=== PATIENT | male | born 1930 | race Caucasian/White ===

== ENCOUNTER 2018-04-10 18:49 | Observation (INO) | payer SELFPAY ==
--- NOTE | 2018-04-10 19:26 | ED ---
Dizziness - HPI Summary HPI Summary: 88 year old M [facility] accompanied by daughter with a chief complaint of dizziness at [address]30 [address] [employer] parking that has since resolved. Symptoms aggravated by nothing. Symptoms alleviated by nothing. Patient states that he felt wobbly and that he was not able to walk. He reports bilateral leg weakness that has since resolved. He did not fall. Patient denies being dizzy at the moment. Daughter also reports that patient was anxious and had insmonia two days ago. Patient has hx anxiety since triple by-pass surgery in 2016. - History Of Current Complaint Chief Complaint: EDDizziness Stated Complaint: DIZZINESS/COULDNT MAKE LEGS WORK Time Seen by Provider: 04/10/18 19:06 Hx Obtained From: Patient, Family/Methods Specialist Engineer - daughter Onset/Duration: Resolved, Suddenly - 1730 today Aggravating Factor(s): Nothing Alleviating Factor(s): Nothing Associated Signs And Symptoms: Positive: Other: - bilateral leg weakness that has since resolved - Allergies/Home Medications Allergies/Adverse Reactions: Allergies Allergy/AdvReac Type Severity Reaction Status Date / Time No Known Allergies Allergy Verified 04/10/18 18:58 Home Medications: Home Medications Atorvastatin* [Lipitor*] 40 mg PO DAILY 04/10/18 [History Confirmed 04/10/18] Ezetimibe TAB* [Zetia TAB*] 10 mg PO DAILY 04/10/18 [History Confirmed 04/10/18] Melatonin/Pyridoxine [Melatonin/Vitamin B-6 Ext 5-1 mg] 1 tab PO BEDTIME [History Confirmed 04/10/18] traZODone TAB* [Desyrel TAB*] 50 mg PO BEDTIME 04/10/18 [History Confirmed 04/10] PMH/Surg Hx/FS Hx/Imm Hx Previously Healthy: No Endocrine/Hematology History: Denies: Hx Diabetes Cardiovascular History: Reports: Hx Hypercholesterolemia Denies: Hx Myocardial Infarction Sensory History: Reports: Hx Hearing Aid EENT History: Reports: Hx Hearing Aid Neurological History: Denies: Hx CVA, Hx Transient Ischemic Attacks (TIA) Psychiatric History: Reports: Hx Anxiety - Surgical History Surgery Procedure, Year, and Place: triple by pass surgery 2016 in [place] Infectious Disease History: No Infectious Disease History: Denies: Traveled Outside the [place] in Last 30 Days - Family History Known Family History: Positive: Cardiac Disease - brothers [place] - Social History Alcohol Use: None Hx Substance Use: No Substance Use Type: Reports: None Hx Tobacco Use: No Smoking Status (MU): Never Smoked Tobacco Review of Systems Neurological: Other - dizziness that has since resolved Positive: Weakness - bilateral leg weakness that has since resolved Positive: Anxious, Other - insomnia All Other Systems Reviewed And Are Negative: Yes Physical Exam - Summary Physical Exam Summary: GENERAL: Patient is a well-developed and nourished M who is lying comfortable in the stretcher. Patient is not in any acute respiratory distress. HEAD AND FACE: Normocephalic EYES: PERRLA, EOMI x 2. EARS: Hearing grossly intact. MOUTH: Oropharynx within normal limits. NECK: Supple, trachea is midline, no adenopathy, no JVD, no carotid bruit. CHEST: Symmetric, no tenderness at palpation LUNGS: Clear to auscultation bilaterally. No wheezing or crackles. CVS: Regular rate and rhythm, S1 and S2 present, no murmurs or gallops appreciated. ABDOMEN: Soft, non-tender. Bowel sounds are normal. No abdominal abnormal pulsations. EXTREMITIES: Full ROM in all major joints, no edema, no cyanosis or clubbing. NEURO: Alert and oriented x 3. No acute neurological deficits. Speech is normal and follows commands. Cranial nerves II-XII grossly intact, no dysmetria finger to nose, nml heel to aguilar SKIN: Dry and warm GCS: 15 Triage Information Reviewed: Yes Vital Signs On Initial Exam: Initial Vitals Temp Pulse Resp BP Pulse Ox 97.3 F 68 16 161/84 96 04/10/18 18:56 04/10/18 18:56 04/10/18 18:56 04/10/18 18:56 04/10/18 18:56 Vital Signs Reviewed: Yes Diagnostics - Vital Signs Vital Signs Temp Pulse Resp BP Pulse Ox 04/10/18 18:56 97.3 F 68 16 161/84 96 - Laboratory Result Diagrams: 04/10/18 19:39 04/11/18 05:23 Lab Statement: Any lab studies that have been ordered have been reviewed, and results considered in the medical decision making process. - Radiology CXR Radiology Interpretation Completed By: ED Physician - No acute process. Pending official report. - CT Brain CT Interpretation Completed By: Radiologist - No acute intracranial abnormality. ED provider has reviewed this report. - EKG 1937 Cardiac Rate: NL - 66 BPM EKG Rhythm: Sinus Rhythm EKG Interpretation: Prolonged MA. Left axis deviation. QT is mildly prolonged National Institutes Of Health - NIH Scale Level of Consciousness: Alert/Keenly Responsive Ask Patient the Month and His/Her Age: Both Correct Ask Pt to Open/Close Eyes and Bench Press Operator/Release Non-Paretic Hand: Both Correctly Best Gaze (Only Horizontal Eye Movement): Normal Visual Field Testing: No Visual Loss Facial Paresis-Pt to Smile & Close Eyes or Grimace Symmetry: Normal/Symmetrical Motor Function - Right Arm: No Drift-Holds 10 Seconds Motor Function - Left Arm: No Drift-Holds 10 Seconds Motor Function - Right Leg: No Drift-Holds 10 Seconds Motor Function - Left Leg: No Drift-Holds 10 Seconds Limb Ataxia-Must be out of Proportion to Weakness Present: Absent Sensory (Use Pinprick to Test Arms/Legs/Trunk/Face): Normal Best Language (Describe Picture, Name Items): No Aphasia Dysarthria (Read Several Words): Normal Extinction and Inattention: No Abnormality Total Score: 0 Re-Evaluation - Re-Evaluation First Eval Re-Evaluation Time: 21:23 Comment: Patient feels fine. He wants to go home, but told him that we will consult with hospitalist first. Dizzy Course/Dx - Course Course Of Treatment: 88 year old M presenting to [facility] accompanied by daughter with a chief complaint of dizziness at [address] in [employer] parking that has since resolved. CT negative for etiology. Bloodwork unremarkable. Symptoms were concerning for TIA so I recommended admission for full stroke workup. Case discussed with hospitalist, Dr. Minaya. I discussed results with patient. The patient will be admitted. The patient agrees with this plan. - Diagnoses Provider Diagnoses: TIA (transient ischemic attack) - Provider Notifications Discussed Care Of Patient With: Latricia Minaya Time Discussed With Above Provider: 21:32 Instructed by Provider To: Other - Dr. Minaya, hospitalist, agrees to come talk to patient in the ED. Discharge - Sign-Out/Discharge Documenting (check all that apply): Patient Departure - Admit - Discharge Plan Condition: Stable Disposition: ADMITTED TO [facility] - Billing Disposition and Condition Condition: STABLE Disposition: Admitted to [facility] - Attestation Statements Document Initiated by Scribe: Yes Documenting Scribe: Bibi Lynch Provider For Whom Scribe is Documenting (Include Credential): Dano Maharaj MD Scribe Attestation: I, Bibi Lynch, scribed for Dano Maharaj MD on 04/11/18 at 2153. Scribe Documentation Reviewed: Yes Provider Attestation: The documentation as recorded by the scribe, Bibi Lynch accurately reflects the service I personally performed and the decisions made by me, Dano Maharaj MD
[2018-04-10] MEDS ORDERED: NS 0.9% 1000 ML* 1,000 ML IV ONE (19:35)
[2018-04-10 19:49] LABS: ABS Basophils 0.1 10^3/ul (0-0.2); ABS Eosinophils 0.3 10^3/ul (0-0.6); ABS Lymphocytes 1.2 10^3/ul (1.0-4.8); ABS Monocytes 0.6 10^3/ul (0-0.8); ABS Neutrophils 3.3 10^3/ul (1.5-7.7); ABS Nucleated RBC 0 10^3/ul; Hematocrit 41 % (42-52); Hemoglobin 13.9 g/dl (14.0-18.0); Mean Corpuscular HGB Conc 34 g/dl (31-36); Mean Corpuscular Hemoglobin 31 pg (27-31); Mean Corpuscular Volume 91 fL (80-94); Mean Platelet Volume 8.1 um3 (7.4-10.4); Nucleated Red Blood Cells % 0; Platelet Count 142 10^3/ul (150-450); Red Blood Count 4.45 10^6/ul (4.00-5.40); Red Cell Distribution Width 14 % (10.5-15); White Blood Count 5.3 10^3/ul (3.5-10.8)
[2018-04-10 19:57] LABS: INR 1.06 (0.77-1.02)
--- NOTE | 2018-04-10 20:16 | RAD ---
EXAM: CT Head Without Intravenous Contrast EXAM DATE/TIME: 04/10/2018 7:57 PM CLINICAL HISTORY: 88 years old, male; Signs and symptoms; Other: PT today at 5: 30pm was coming out of [employer] and felt dizzy, PT called his daughter and she came to pick him up. PT is visiting from out of town from [place]; Additional info: Neurological changes/code zavala TECHNIQUE: Axial computed tomography images of the head/brain without intravenous contrast. All CT scans at this facility use at least one of these dose optimization techniques: automated exposure control; mA and/or kV adjustment per patient size (includes targeted exams where dose is matched to clinical indication); or iterative reconstruction. COMPARISON: No relevant prior studies available. FINDINGS: Brain: The cortical pattern is normal for patient's age.There is mild diffuse hypoattenuation of of the white matter matter consistent with chronic small vessel disease. No intracranial hemorrhage or mass effect. Ventricles: Normal. No ventriculomegaly. Bones/joints: Normal. No acute fracture. Sinuses: Normal paranasal sinuses. Mastoid air cells: Normal as visualized. No mastoid effusion. Soft tissues: Normal. IMPRESSION: No acute intracranial abnormality. To contact [facility] with a general question: [facility] - [phone] For direct physician to physician contact: Physician Hotline - [phone] [facility] ([facility] Facility ID #[id number])
[2018-04-10 22:02] LABS: Urine Appearance Clear; Urine Blood Negative (Negative); Urine Color Yellow; Urine Ketones Negative (Negative); Urine Protein Negative (Negative); Urine Specific Gravity 1.011 (1.010-1.030); Urine Urobilinogen Negative (Negative)
[2018-04-10] MEDS ORDERED: Acetaminophen TAB* 325 MG PO PRN (22:50)
[2018-04-10] MEDS ORDERED: Al Hydrox/Mg Hydrox/Simet LIQ* 30 ML UDC PO PRN (22:50)
[2018-04-11] MEDS: Melatonin 3 MG TAB PO PRN ×2 (00:40→19:55)
[2018-04-11] MEDS: traZODone TAB* 50 MG TAB PO SCH ×2 (00:40→19:55)
[2018-04-11] MEDS: Enoxaparin(*) 40 MG/0.4 ML SYR SUBCUT SCH ×2 (00:42→22:31)
--- NOTE | 2018-04-11 01:37 | HP ---
HISTORY AND PHYSICAL: DATE OF ADMISSION: 04/10/18 TIME OF ADMISSION: 11 p.m. PRIMARY CARE PROVIDER: [facility] in [place]. CHIEF COMPLAINT: Wobbliness. HISTORY OF PRESENT ILLNESS: This is an 88-year-old man with history of coronary artery disease and vertigo, who presents after an episode of "dizziness " at [employer] that occurred at approximately 5:30 this evening. He was walking out of [employer] to the parking lot when he suddenly felt that he could not coordinate his steps. He says he felt completely clear in his mind and thoughts but he could not make his legs continue walking. He believed that he was staggering and was walking like he was drunk and could not stop it and some bystanders helped him back into [employer] to sit down at which time the symptoms resolved. He now feels back to baseline. He had no chest pain, shortness of breath, slurred speech, confusion, or paresthesias at this time. His daughter is here with him; however, she was not at [employer] when this episode occurred. He has never had anything like this before. He has history of vertigo but says that these symptoms were nothing like that. When asked to clarify what he meant by dizziness, he says it was actually not dizziness but more of a feeling of drunkenness in coordinating his gait. He denies any recent illness, no recent medications, no intoxications or ingestions. He is normally very active and walks at least a mile per day. He is here visiting his daughter, who lives here, and he lives in [facility]. PAST MEDICAL HISTORY: 1. Coronary artery disease, status post CABG in 2016. 2. Vertigo about 3 years ago, but he does not remember this. HOME MEDICATIONS: 1. Zetia 10 mg daily. 2. Trazodone 50 mg q.h.s. 3. Atorvastatin 40 mg daily. 4. Melatonin 3 mg q.h.s. ALLERGIES: None. FAMILY HISTORY: All the men in his family had MIs in their 60s. His mom of Alzheimer's disease. SOCIAL HISTORY: He is a never smoker and never drinks alcohol. His Healthcare proxy is his daughter Yumi Mock, her phone number is [phone]. REVIEW OF SYSTEMS: As per the HPI, remainder of 14-point review of systems is negative. PHYSICAL EXAMINATION GENERAL: Alert, well-appearing, elderly man in no distress. VITAL SIGNS: Temperature 97.3, heart rate 68, respiratory rate 17, pulse ox 95 % on room air, blood pressure 173/86. HEENT: Pupils are 3 mm bilaterally and reactive to light. He has no nystagmus. Oral mucosa is moist. No pharyngeal exudates. NECK: No JVP, no cervical adenopathy, no carotid bruits. CHEST: Regular rate and rhythm, no murmurs. A sternotomy incision is well healed. LUNGS: Clear bilaterally. ABDOMEN: Soft, nontender, nondistended. No guarding or rebound. EXTREMITIES: No rashes, ulcers, or edema. NEUROLOGIC: He is oriented x3 and answers all questions appropriately. He follows simple and complex commands. His strength is 5/5 in all extremities. His coordination is intact. DIAGNOSTIC STUDIES/LAB DATA: White blood cells 5.3, hemoglobin 13.9, platelets 142. INR 1.06. Sodium 142, potassium 4.2, chloride 109, BUN 19, creatinine 1.35, lactic acid 0.8. Troponin 0.01. LDL 32, HDL 41, total cholesterol 89, triglycerides 81. Urinalysis is unremarkable. Brain CT: No acute intracranial abnormalities. ASSESSMENT AND PLAN: This is an 88-year-old man with history of coronary artery disease and vertigo, who presents with an episode of ataxia that lasted for 2 minutes today and now is back to baseline. 1. Ataxia. This is most concerning for transient ischemic attack especially given his history of coronary disease. His CT head is unremarkable. I would like to check a CTA and an MRI. His cholesterol is exceptionally well controlled, in fact maybe too low and even causing neurologic symptoms but I would not expect those to be transient if it were related to that. I see no other metabolic or infectious conditions that are apparent that may have contributed to his ataxia. He has not taken aspirin or Plavix since his coronary artery bypass graft and I am starting both now and if indeed the diagnosis of transient ischemic attack is confirmed, he will need both for 30 days. He says that he had some gastrointestinal upset with aspirin in the past , so I am giving enteric-coated aspirin. I will monitor him on telemetry. He has no history of atrial fibrillation or other arrhythmias, but this should be evaluated and I will get an echocardiogram in the morning. 2. Coronary artery disease, status post coronary artery bypass graft. Continue Zetia and atorvastatin. Again, his cholesterol may be too well controlled on these medications. He is also not on a beta sofie. 3. DVT prophylaxis. Lovenox. 4. Acute kidney injury versus chronic kidney disease. I do not have a baseline creatinine on him. He already received a liter of fluid in ED and he appears euvolemic. I will recheck his creatinine in the morning and also orthostatic vital signs. [id number]/[facility] #: [id number] PAUL
[2018-04-11 05:51] LABS: EGFR Non-African American 65.4 (>60)
[2018-04-11] MEDS ORDERED: NS 0.9% 1000 ML* 1,000 ML IV SCH (07:30)
--- NOTE | 2018-04-11 07:45 | RAD ---
HISTORY: Neurological Changes/Code [place] COMPARISONS: None VIEWS: 1: frontal AP view of the chest at 7:55 PM FINDINGS: LINES AND TUBES: None. CARDIOMEDIASTINAL SILHOUETTE: The cardiomediastinal silhouette is normal for portable technique. PLEURA: The costophrenic angles are sharp. No pleural abnormalities are noted. LUNG PARENCHYMA: The lungs are clear. ABDOMEN: The upper abdomen is clear. There is no subphrenic gas. BONES AND SOFT TISSUES: The patient is status post median sternotomy. IMPRESSION: NO ACTIVE CARDIOPULMONARY DISEASE. R0
[2018-04-11] MEDS: Atorvastatin* 40 MG TAB PO SCH (08:22)
[2018-04-11] MEDS: Clopidogrel TAB* 75 MG PO SCH (08:22)
[2018-04-11] MEDS: Ezetimibe TAB* 10 MG PO SCH (08:22)
[2018-04-11] MEDS: Aspirin EC TAB* 81 MG TAB.EC PO SCH (08:22)
[2018-04-11] MEDS ORDERED: Iohexol 350* (CONTRAST) 500 ML MDV IV ONE (09:14)
--- NOTE | 2018-04-11 12:43 | ECHO ---
Patient: DALTON MOSCOSO [facility] Rec#: [id number] : 1930 Date: 04/11/2018 Age: 88y Height: 160 cm / 63.0 in Weight: 63 kg / 138.9 lbs Sex: M BSA: 1.66 Room#: 435 Admit Date#: 04/10/2018 Type: Inpatient Referring: Latricia Minaya MD Reading: Pinky Gould MD Distributed Generation Project Manager: Juliet AlvarezRDCS,RDMS Transthoracic Echocardiogram Indication: TIA BP: 105/59 HR: 60 Rhythm: NSR Findings History: CAD, CABG Technical Comments: The study quality is good. Left Ventricle: The left ventricular chamber size is normal. Basal interventricular septum shows moderate thickening. Global left ventricular wall motion and contractility are within normal limits. The estimated ejection fraction is 55-60%. Ventricular septal wall motion has a post-operative appearance. Base of the inferior wall relatively hypokinetic, can be varient of normal. There is an E to A reversal in the mitral valve flow pattern suggestive of diastolic dysfunction. Left Atrium: The left atrium is mildly dilated. Right Ventricle: The right ventricle is mildly dilated. The right ventricular global systolic function is low normal. Right Atrium: The right atrial cavity size is normal. The bubble study is negative. A patent foramen ovale is not demonstrated with color Doppler and agitated contrast. There is evidence of an atrial septal aneurysm. Aortic Valve: The aortic valve is trileaflet. The aortic valve leaflets are mildly thickened. There is aortic annular calcification. There is a trace of aortic regurgitation. There is no evidence of aortic stenosis. Mitral Valve: The mitral valve leaflets appear normal. There is mild mitral regurgitation. There is no evidence of mitral stenosis. Tricuspid Valve: The tricuspid valve leaflets are normal. There is mild tricuspid regurgitation. No pulmonary hypertension is noted. Pulmonic Valve: The pulmonic valve appears normal. There is no evidence of pulmonic regurgitation. Pericardium: There is no significant pericardial effusion. Aorta: The aortic root appears normal. There is no dilatation of the aortic arch. Pulmonary Artery: The main pulmonary artery is not well visualized. Venous: The inferior vena cava appears normal in size. There is a greater than 50% respiratory change in the inferior vena cava dimension. Contrast: Intravenous agitated saline contrast was used to assess intracardiac shunting. Conclusions Global left ventricular wall motion and contractility are within normal limits. Ventricular septal wall motion has a post-operative appearance. Base of the inferior wall relatively hypokinetic, can be varient of normal. Basal interventricular septum shows moderate thickening. The estimated ejection fraction is 55-60%. There is an E to A reversal in the mitral valve flow pattern suggestive of diastolic dysfunction. The right ventricular global systolic function is low normal. There is evidence of an atrial septal aneurysm, the bubble study is negative. No evidence of cardiopulmonary shunt based on color Doppler and bubble study. There is a trace of aortic regurgitation with mild aortic valve sclerosis. There is mild mitral regurgitation. There is mild tricuspid regurgitation. Prior echo not available to compare. Measurements Name Value Normal Range RVIDd (AP) 2D 3.5 cm (0.9 - 2.6) RVDdMajor (2D) 3.6 cm (2.2 - 4.4) RAd ISD 4CH 4.7 cm (3.4 - 4.9) RA (A4C)W 3.9 cm (2.9 - 4.6) IVSd (2D) 1.3 cm (0.6 - 1) LVPWd (2D) 0.8 cm (0.6 - 1) LVIDd (2D) 4.3 cm (3.6 - 5.4) LVIDs (2D) 2.8 cm - LV FS (2D) 35 % (25 - 45) Aortic Annulus 2 cm (1.4 - 2.6) Ao root diameter (2D) 3.1 cm (2.1 - 3.5) Ascending Ao 3.1 cm (2.1 - 3.4) Aortic arch 2.1 cm (1.8 - 3.4) LA dimension (AP) 2D 4.1 cm (2.3 - 3.8) LAd ISD 4CH 5 cm (2.9 - 5.3) LA ISD 4CH W 3.2 cm (2.5 - 4.5) Name Value Normal Range LA ESV BP (A/L) index 26 ml/m2 - Name Value Normal Range MV E-wave Vmax 0.6 m/sec - MV deceleration time 280 msec - MV A-wave Vmax 1 m/sec - MV E:A ratio 0.6 ratio - P. vein S-wave Vmax 0.6 m/sec - P. vein D-wave Vmax 0.5 m/sec - P. vein S:D Vmax ratio 1.3 ratio - P. vein A-wave duration 111 msec - LV septal e' Vmax 0.05 m/sec - LV lateral e' Vmax 0.1 m/sec - LV E:e' septal ratio 11 ratio - LV E:e' lateral ratio 6 ratio - Name Value Normal Range AV Vmax 1.4 m/sec - AV VTI 32 cm - AV peak gradient 8 mmHg - AV mean gradient 4 mmHg - LVOT Vmax 0.9 m/sec - LVOT VTI 20 cm - LVOT peak gradient 3.2 mmHg - LVOT mean gradient 2 mmHg - RAPHAEL Vmax 0.5 m/sec - Name Value Normal Range TR Vmax 2.4 m/sec - TR peak gradient 23 mmHg - RAP 3 mmHg - RVSP 26 mmHg - IVC diameter 1.3 cm - Name Value Normal Range PV Vmax 0.8 m/sec - PV peak gradient 2.6 mmHg -
--- NOTE | 2018-04-11 13:53 | RAD ---
HISTORY: TIA COMPARISONS: Head CT dated April 10, 2018 TECHNIQUE: Multiple contiguous axial CT scans were obtained of the head and neck after the administration of nonionic intravenous contrast timed to the systemic arterial phase of contrast enhancement. Coronal and sagittal multiplanar reformations are submitted for review. Multiple 3-D maximum intensity projection reconstructions are also submitted for review. FINDINGS: CTA NECK: AORTIC ARCH: There is a normal three-vessel branching pattern of the aortic arch. There is no ostial or proximal stenosis of the cephalic great vessels. RIGHT VERTEBRAL ARTERY: There is high-grade stenosis of the ostium of the right vertebral artery. LEFT VERTEBRAL ARTERY: The left vertebral artery is patent along its course, without stenosis. DOMINANCE: The right vertebral artery is dominant. RIGHT COMMON CAROTID ARTERY: The right common carotid artery is patent. The right carotid bifurcation occurs at C5-C6 RIGHT INTERNAL CAROTID ARTERY: There is no right internal carotid artery stenosis by NASCET criteria. RIGHT EXTERNAL CAROTID ARTERY: The right external carotid artery is unremarkable. LEFT COMMON CAROTID ARTERY: The left common carotid artery is patent. The left carotid bifurcation occurs at C4-C5 LEFT INTERNAL CAROTID ARTERY: There is no left internal carotid artery stenosis by NASCET criteria. LEFT EXTERNAL CAROTID ARTERY: The left external carotid artery is unremarkable. VENOUS CIRCULATION: The venous system is unremarkable. SALIVARY GLANDS: The parotid glands, submandibular glands, sublingual glands are normal. NASAL CAVITY/NASOPHARYNX: The nasal cavity and nasopharynx are normal. ORAL CAVITY/OROPHARYNX: The oral cavity is obscured by streak artifact from dental amalgam. The visualized oral cavity and oropharynx are unremarkable. LARYNGEAL APPARATUS/HYPOPHARYNX: The laryngeal apparatus and hypopharynx are normal. UPPER AIRWAY/UPPER ESOPHAGUS: The visualized upper airway and esophagus are normal. LUNG APICES: The lung apices are clear. THYROID GLAND: The thyroid gland is normal. LYMPH NODES: There is no lymphadenopathy by size criteria. BONES AND SOFT TISSUES: No bone or soft tissue abnormalities are noted. CTA HEAD: INTRACRANIAL CIRCULATION: There is no aneurysm, vascular malformation, occlusion, or stenosis of the visualized intracranial circulation. The anterior communicating artery complex is clear. Bilateral posterior communicating arteries are identified. VENOUS CIRCULATION: The venous system is unremarkable. PERFUSION: There is no obvious parenchymal perfusion deficit. HEMORRHAGE/INFARCT: There is no hemorrhage or acute infarct. MASSES/SHIFT: There is no mass or shift. EXTRA-AXIAL SPACES: There are no extra-axial fluid collections. SULCI AND VENTRICLES: The sulci and ventricles are normal in size and position for the patient's stated age. CEREBRUM: There are no focal parenchymal abnormalities. BRAINSTEM: There are no focal parenchymal abnormalities. CEREBELLUM: There are no focal parenchymal abnormalities. PARANASAL SINUSES: The paranasal sinuses are clear. ORBITS: The orbits are unremarkable. BONES AND SOFT TISSUE: Degenerative changes are noted of the spine. OTHER: There is no abnormal enhancement. 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 NO INTERNAL CAROTID ARTERY STENOSIS BY NASCET CRITERIA. NO ANEURYSM, VASCULAR MALFORMATION, OCCLUSION, OR STENOSIS OF THE VISUALIZED INTRACRANIAL CIRCULATION. CPT II Codes: 3100F
[2018-04-11] MEDS ORDERED: Clopidogrel TAB* 300 MG PO ONE (15:30)
--- NOTE | 2018-04-11 16:02 | PN ---
Subjective Date of Service: 04/11/18 Interval History: Patient has no residual deficits and has had no dizziness. Patient denies CP, SOB, N/V, abdominal pain, F/C, dysuria, polyuria, or other pain. Patient has been able to walk around the unit numerous times without ill effect. Family History: Unchanged from Admission Social History: Unchanged from Admission Past Medical History: Unchanged from Admission Objective Active Medications: Acetaminophen (Tylenol Tab*) 650 mg PO Q4H PRN PRN Reason: FEVER/PAIN Al Hydrox/Mg Hydrox/Simethicone (Maalox Plus*) 30 ml PO Q6H PRN PRN Reason: INDIGESTION Aspirin (Aspirin Ec Tab*) 81 mg PO DAILY [facility] Last Admin: 04/11/18 08:22 Dose: 81 mg Atorvastatin Calcium (Lipitor*) 40 mg PO DAILY [facility] Last Admin: 04/11/18 08:22 Dose: 40 mg Clopidogrel Bisulfate (Plavix Tab*) 75 mg PO DAILY [facility] Last Admin: 04/11/18 08:22 Dose: 75 mg Ezetimibe (Zetia Tab*) 10 mg PO DAILY [facility] Last Admin: 04/11/18 08:22 Dose: 10 mg Enoxaparin Sodium (Lovenox(*)) 40 mg SUBCUT Q24H [facility] Last Admin: 04/11/18 00:42 Dose: 40 mg Melatonin (Melatonin) 3 mg PO BEDTIME PRN; Protocol PRN Reason: SLEEP Last Admin: 04/11/18 00:40 Dose: 3 mg Trazodone HCl (Desyrel Tab*) 50 mg PO BEDTIME [facility] Last Admin: 04/11/18 00:40 Dose: 50 mg Vital Signs - 8 hr 04/11/18 04/11/18 04/11/18 07:59 11:49 15:45 Temperature 98.4 F 97.8 F Pulse Rate 65 63 Respiratory 16 20 16 Rate Blood Pressure 123/71 149/73 (mmHg) O2 Sat by Pulse 98 98 99 Oximetry Oxygen Devices in Use Now: None Appearance: Patient is an 88yo male who appears younger than stated age and is sitting in the bed in NAD. Eyes: No Scleral Icterus, PERRLA Ears/Nose/Mouth/Throat: NL Teeth, Lips, Gums, Clear Oropharnyx, Mucous Membranes Moist Neck: NL Appearance and Movements; NL JVP, Trachea Midline Respiratory: Symmetrical Chest Expansion and Respiratory Effort, Clear to Auscultation Cardiovascular: NL Sounds; No Murmurs; No JVD, RRR, No Edema Abdominal: NL Sounds; No Tenderness; No Distention, No Hepatosplenomegaly Lymphatic: No Cervical Adenopathy Extremities: No Edema, No Clubbing, Cyanosis Skin: No Rash or Ulcers, No Nodules or Sclerosis Neurological: Alert and Oriented x 3, NL Sensation, NL Gait, NL Muscle Strength and Tone, - - CN II-XII intact. Cerebellar testing intact. Result Diagrams: 04/10/18 19:39 04/11/18 05:23 Assess/Plan/Problems-Billing Assessment: Patient is an 88yo male with a PMH only for HLD, CABG, vertigo, here with episode of ataxia and probable TIA found to have vertebral stenosis who is admitted for full workup of possible CVA. - Patient Problems (1) TIA (transient ischemic attack) Current Visit: Yes Status: Acute Code(s): G45.9 - TRANSIENT CEREBRAL ISCHEMIC ATTACK, UNSPECIFIED SNOMED Code(s): 644056924 Comment: - No residual deficits, Appreciate Neuro input - Vertebral stenosis on CVA - Echo shows no PFO - Possible old cerebellar CVA on CT. - Lipids excellent - MRI pending. 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 - Echo shows no decreased EF. (5) DVT prophylaxis Current Visit: Yes Status: Acute Code(s): LJC0114 - SNOMED Code(s): 774697890 Comment: - Heparin SubQ. (6) Full code status Current Visit: Yes Status: Acute Code(s): Z78.9 - OTHER SPECIFIED HEALTH STATUS SNOMED Code(s): 868045969 Status and Disposition: Observation.
--- NOTE | 2018-04-11 18:42 | CONS ---
NEUROLOGY CONSULTATION: DATE OF CONSULT: 04/11/18 LOCATION: He is an inpatient in room 435. REFERRING PROVIDER: CORI Fernandez. CHIEF COMPLAINT: Difficulty walking. HISTORY OF PRESENT ILLNESS: Wilfredo Mock is an 88-year-old right-handed man visiting his daughter from [facility]. When he came out of the [employer] yesterday and as he was heading out to his car in the parking lot, he found it suddenly very difficult to walk. He felt like he might fall to one way or the other and he could not take a step. He did not feel faint or lightheaded and he did not fall, but he felt at risk too. A area attendant apparently helped steady him. After about 3 minute or perhaps 4, it passed. He returned back to normal. He presented to the emergency room for evaluation. In the emergency room yesterday afternoon, he was asymptomatic. He was started on aspirin and admitted. He had a CT scan of the brain interpreted by the on-call radiologist as no acute intracranial abnormality. I reviewed it and I generally agree, although there is an area of hypodensity in the right cerebellum, looks possibly to be an old area of ischemia. He had an episode perhaps 10 years ago of "vertigo." He does not remember what the symptoms were, but his daughter told him that he had such an episode. He is a very healthy 88-year-old and was running 7 miles a day up until the age of 84. His doctor told him that he needed to stop running, but that he could walk 3 miles a day and that is what he has been doing since. He does not take aspirin as apparently it bothered his stomach in the past. I cannot get a clear history of why he stopped it, but he denies ever having gastric ulcers. PAST MEDICAL HISTORY: Notable for coronary artery disease with bypass grafting , hyperlipidemia. MEDICATIONS: At home consist of: 1. Zetia 10 mg p.o. daily. 2. Atorvastatin 40 mg p.o. daily. 3. Melatonin 3 mg p.o. q.h.s. 4. Trazodone 50 mg p.o. q.h.s. Current medications also include: 1. Aspirin 81 mg p.o. daily started at admission. 2. Plavix 75 mg p.o. started last evening. 3. Lovenox 40 mg subcutaneous q.24 hours. ALLERGIES: He does not have any drug allergies. SOCIAL HISTORY: He is a nonsmoker, does not drink alcohol. REVIEW OF SYSTEMS: Notable for some insomnia in the last few days. He has traveled to [place] from [facility] to help his daughter getting her kids to school and back. He says it is about a 5-block walk. He has had any falls, double vision, change in vision, difficulty with speech, numbness of the face or extremities, or incoordination in the hands. No problems with nausea or lightheadedness. No sense of room spinning or dizziness. No history of diabetes or hypertension. PHYSICAL EXAM: He is well nourished and well hydrated. Temperature 98.4, blood pressure 122/71, heart rate in the 60s and regular. Respiratory rate is 20, oxygen saturation is 98% on room air. Heart is in a regular rate and rhythm without murmurs. Lungs are clear. Carotid pulses are present and there are no bruits. Oral mucosa is moist and atraumatic. Neurological Exam: Pupils react equally from 3 to 2.5 mm consensually to light. Eye movements and visual trujillo are normal. Funduscopic exam reveals sharp discs bilaterally. Facial musculature is symmetric. Facial sensation to light touch is symmetric. Palate and tongue appear normal, palate rises symmetrically and tongue protrudes in the midline. Speech is clear with accent without dysarthria. He has a hearing aid. Neck strength is normal. Motor exam reveals some paratonia, but normal strength proximally and distally in all limbs. There is no pronator drift. Finger taps are intact symmetrically. Dgiipm-xr-[id number] maneuver is normal bilaterally. Tare-vg-xdhl maneuver is normal bilaterally. Sensory exam in the limbs is intact to light and pin discrimination. Romberg sign is absent. Reflexes are trace at the brachioradialis, grade 2 at the knees, trace at the ankles. Plantar responses are flexor bilaterally. Gait is stable and independent. He is alert and oriented and a good detailed historian. Memory seems preserved and language is fluent. He has good attention, concentration, and adequate fund of knowledge. DIAGNOSTIC STUDIES/LAB DATA: Include the CT scan described above. A CT angiogram was done earlier today and I reviewed the images. It is interpreted by Dr. Armendariz as showing high-grade right vertebral ostial stenosis. The right vertebral is dominant. There are no other significant abnormalities. Other laboratory data notable for normal CBC other than a borderline hemoglobin at 13.9 and platelet count of 142,000. INR is a little bit high at 1.06, PTT normal at 32.3. Chemistry profile is notable for creatinine of 1.35 when he came in last evening, down to 1.07 this morning. Glucose was 130 this evening, this morning 132. Cholesterol yesterday on admission 89, LDL 32. Urinalysis is negative. A transthoracic echocardiogram was performed early this morning. Left atrium was mildly dilated, left ventricular ejection fraction was 55% to 60%. There was mild mitral regurgitation. There was a trace of aortic regurgitation. Bubble study was negative. IMPRESSION AND PLAN: Interpretation is that of possible cerebellar or brainstem transient ischemic attack. He does have vertebral stenosis as potential etiological lesion. Currently, his blood pressure is adequate and he has been started on aspirin and Plavix. An MRI of the brain has been ordered for tomorrow. I think he should remain here on telemetry overnight and get the MRI. If there is no evidence of acute infarction, then I think he can be discharged on aspirin and Plavix dual therapy for 30 days to be switched to Plavix monotherapy after 30 days. We will see what happens on telemetry overnight and assess the MRI scan tomorrow and make further recommendations. I will follow him along with you. [id number]/[facility] #: [id number] PAUL
[2018-04-12] MEDS: Ezetimibe TAB* 10 MG PO SCH (08:21)
[2018-04-12] MEDS: Atorvastatin* 40 MG TAB PO SCH (08:21)
[2018-04-12] MEDS: Aspirin EC TAB* 81 MG TAB.EC PO SCH (08:21)
[2018-04-12] MEDS: Clopidogrel TAB* 75 MG PO SCH (08:21)
--- NOTE | 2018-04-12 11:27 | RAD ---
HISTORY: tia COMPARISONS: Head CT dated April 10, 2018 TECHNIQUE: The following sequences were obtained of the head: Sagittal T1-weighted images, axial T2-weighted images, axial FLAIR images, axial susceptibility weighted images, axial T1-weighted images. Additionally, axial diffusion-weighted images were obtained with calculated apparent diffusion coefficients. FINDINGS: HEMORRHAGE/INFARCT: There is no hemorrhage or acute infarct. MASSES/SHIFT: There is no mass or shift. EXTRA-AXIAL SPACES/MENINGES: There are no extra-axial fluid collections. SULCI AND VENTRICLES: The sulci and ventricles are normal in size and position for the patient's stated age. CEREBRUM: There are no focal parenchymal abnormalities. BRAINSTEM: There are no focal parenchymal abnormalities. CEREBELLUM: There are no focal parenchymal abnormalities. The cerebellar tonsils are normal in size and position. SELLA: The sella is normal. PINEAL: The pineal region is clear. CP ANGLE/TEMPORAL BONES: The labyrinthine structures are grossly normal. VESSELS: Normal flow-voids are noted within the visualized vertebral vasculature. DIFFUSION ABNORMALITIES: There are no diffusion abnormalities. PARANASAL SINUSES/MASTOIDS: The maxillary sinuses are atelectatic. There is mucosal thickening of ethmoid air cells. ORBITS: The orbits are unremarkable. BONES AND SOFT TISSUE: No bone or soft tissue abnormalities are noted. OTHER: None IMPRESSION: NORMAL BRAIN.
[2018-04-12 15:46] VITALS: BP 133/65
--- NOTE | 2018-04-12 21:01 | CONS ---
NEUROLOGY FOLLOWUP NOTE: DATE OF FOLLOWUP: 04/12/18 LOCATION: He is in room 435. HOSPITALIST: Tata Olsen NP CHIEF COMPLAINT: Episode of ataxia. INTERVAL HISTORY: Since yesterday, Mr. Mock feels well. He has been walking 4 miles a day around the nursing unit. He has not had any more episodes of ataxia and no problems with dizziness or new symptoms. He is now on aspirin and has not had any new gastrointestinal issues. He is also on Plavix. MEDICATIONS: Reviewed; and, in addition to aspirin 81 mg p.o. daily, Plavix 75 mg p.o. daily, he is on: 1. Lovenox 40 mg subcutaneous q.24 hours. 2. Zetia 10 mg p.o. daily. 3. Trazodone 50 mg p.o. q.h.s. 4. Atorvastatin 40 mg p.o. daily. PHYSICAL EXAM: Mr. Mock was not examined today. DIAGNOSTIC STUDIES/LAB DATA: Includes an MRI of the brain interpreted by Dr. Armendariz as normal. I reviewed the images and I agree. IMPRESSION AND PLAN: Impression is that of a probable posterior circulation transient ischemic attack. I recommend that he be discharged on dual antiplatelet therapy and switched to Plavix monotherapy by about the 30-day [place]. He is planning on staying in the area and so I will plan to see him in followup in my office in 3 to 4 weeks to reevaluate and make sure that the medication switch goes properly. I have discussed my recommendations with Tata Olsen NP, who will call his daughter to advise her as well. [id number]/[facility] #: [id number] PAUL
--- NOTE | 2018-04-13 08:25 | DS ---
AMENDED REPORT NOW INCLUDES DESIGNATED COSIGNER - ESIGNED BEFORE ADJUSTMENT DISCHARGE SUMMARY: DATE OF ADMISSION: 04/10/18 DATE OF DISCHARGE: 04/12/18 ATTENDING PHYSICIAN: Dr. Meadows * (dictated by Chica Olsen NP). PRIMARY CARE PROVIDER: No PCP. PRIMARY DIAGNOSES: 1. Transient ischemic attack. SECONDARY DIAGNOSES: 1. Hyperlipidemia. 2. History of coronary artery bypass graft. STUDIES WHILE IN THE HOSPITAL: 1. Brain CT on 04/10/18 reads as no acute intracranial abnormality. 2. Chest x-ray on 04/10/18 reads as no active cardiopulmonary disease. 3. Transthoracic echocardiogram on 04/11/18 reads as global left ventricular wall motion and contractility are within normal limits. Ventricular septal wall motion has a postoperative appearance. Base of inferior wall relatively hypokinetic, can be variant of normal. Basal interventricular septum shows moderate thickening. The estimated ejection fraction was 55% to 60%. There is an E to A reversal in the mitral valve flow pattern is suggestive of diastolic dysfunction. The right ventricular global systolic function as well normal. There is evidence of an atrial septal aneurysm. The bubble study is negative. There is trace aortic regurgitation with mild aortic valve sclerosis, mild mitral regurgitation, and mild tricuspid regurgitation. No comparison studies. 4. Head CTA on 04/11/18 reads as high-grade ostial stenosis of the right vertebral artery. No internal carotid artery stenosis by NASCET criteria. No aneurysm, vascular malformation, occlusion, or stenosis of the visualized intracranial circulation. 5. Brain MRI on 04/12/18 reads as normal brain. CONSULTATIONS WHILE IN THE HOSPITAL: The patient was seen in consultation by Dr. Wilcox on 04/11/18; he felt as though there was a possible cerebellar or brainstem TIA. He felt as though the patient's blood pressure was adequate and he had already been started on aspirin and Plavix, which he recommended to continue. He recommended remaining on telemetry overnight and having an MRI brain in the morning. On 04/12/18, I spoke with Dr. Wilcox who felt as though the patient was stable for discharge home due to a negative MRI. He recommended aspirin and Plavix dual therapy for 30 days and will likely switch the patient to Plavix monotherapy after 30 days. DISCHARGE MEDICATIONS: New home medications: 1. Aspirin 81 mg p.o. daily. 2. Clopidogrel 75 mg p.o. daily. Continued medications: 1. Atorvastatin 40 mg p.o. daily. 2. Zetia 10 mg p.o. daily. 3. Trazodone 50 mg p.o. at bedtime. 4. Melatonin 5 mg 1 tab p.o. at bedtime. HISTORY OF PRESENT ILLNESS AND HOSPITAL COURSE: Mr. Mock is an 88-year-old man with history of coronary artery disease and vertigo, who presented to the emergency room after an episode of dizziness while at [employer]. Please see the history and physical by Dr. Minaya for a complete summary of the events leading up to this hospitalization; but in short, the patient felt as though he had a clear mind, but he could not move his legs correctly. He was assisted to a sitting position and his symptoms resolved. He described a feeling of drunkenness in coordinating his gait. While in the emergency room, the patient had an unremarkable workup. He was admitted by the hospitalist service for concern for TIA. During this hospitalization, the patient had multiple imaging studies as noted above, though there were no acute findings. He was started on Plavix and aspirin for dual platelet therapy. He denied any additional dizziness or ataxia and showed no residual deficits. He was noted to have excellent lipid control. He ambulated around the unit frequently during the day while hospitalized. On the day of discharge, the patient is asymptomatic. I spoke with Dr. Wilcox as noted above, though he agrees that the patient is stable for discharge on dual antiplatelet therapy. Mr. Mock is stable for discharge home today. Vital signs are as follows: Temp 97.6, heart rate 62, respiratory rate 16, oxygen saturation 98% on room air , blood pressure 133/65. DISCHARGE PLAN: Mr. Mock will be discharged to home. Activity will be as tolerated. Diet will be regular as tolerated. New medications are noted above. The patient will be started on low-dose aspirin and Plavix. He should follow up with Dr. Wilcox in 3 to 4 weeks. He should also follow up with a primary care provider or the [facility] here at the hospital. I did speak at length with his daughter who was concerned as he takes frequent walks alone outside. She has been advised of multiple options, though did seem to be interested in getting a Life Alert for him and will look into that option. The patient has been instructed to return to the emergency room or nearest hospital for any worsening of symptoms, shortness of breath, lightheadedness, dizziness, chest discomfort, high fevers, chills, night sweats , loss of consciousness, or any other worrisome signs or symptoms. This is a summarized report of a complex medical history and hospital stay. For further details, please see the entire medical record. TIME SPENT: Approximately 45 minutes were spent on this discharge, greater than half of that time spent [id number] with the patient and on the phone with his daughter discussing discharge plans and instructions. CHICA OLSEN SKI MAKER [id number]/[facility] #: [id number] PAUL
== END 2018-04-12 16:50 | disposition home or self-care (01) ==
LOC: ED 18:49 → MEDTELE 22:50
PROVIDERS: ADMIT Internal Medicine; ATTEND Student in an Organized Health Care Education/Training Program
DX: G45.9 Transient cerebral ischemic attack, unspecified (principal); E78.5 Hyperlipidemia, unspecified; I25.10 Atherosclerotic heart disease of native coronary artery without angina pectoris; R53.1 Weakness; Z95.5 Presence of coronary angioplasty implant and graft; R42 Dizziness and giddiness; Z79.82 Long term (current) use of aspirin
CPT/HCPCS: 36415; 70450; 70496; 70498; 70551; 71045; 80048; 80053; 80061; 81003; 83605; 84484; 85025; 85610; 85730; 86850; 86900; 86901; 93005; 93306; 96360; 96372; 99284; A9270-GY; G0378; J1650; Q9967